=== PATIENT | male | born 2005 | race Two or more races ===

== ENCOUNTER 2024-09-07 21:06 | Emergency (ER) | payer MEDICAID, OTHER ==
[~2024-09-07] VITALS: Ht 162.6 cm; Wt 67.0 kg
[2024-09-07] MEDS: HYDROmorphone HCL 2 MG/ML VL/or syr IM ONE (21:32)
[2024-09-07] MEDS: LIDOCAINE 1% HCL (LOCAL ANESTH.) INJ 20ML MDV ID ONE (22:01)
[2024-09-08] MEDS ORDERED: BACIOIN15 OP (00:52)
[2024-09-08] MEDS ORDERED: HYDR-4902 PO (00:52)
[2024-09-08] MEDS ORDERED: CEPH500C PO (00:52)
[2024-09-08] MEDS ORDERED: IBUP-1455 PO (00:52)
[2024-09-08 00:58] VITALS: BP 124/82; PULSE 86; RESP 20; O2SAT 100
[2024-09-08] MEDS: BACITRACIN TOP OINT 1 UD PKG TOP ONE (02:06)
[2024-09-08] MEDS: HYDROcodone-ACET 10/325MG TAB PO ONE (02:13)
== END 2024-09-08 02:30 | disposition home or self-care (01) ==
LOC: ER 21:06
DX: S61.412A Laceration without foreign body of left hand, initial encounter (principal); S61.211A Laceration without foreign body of left index finger without damage to nail, initial encounter; S61.213A Laceration without foreign body of left middle finger without damage to nail, initial encounter; S67.22XA Crushing injury of left hand, initial encounter; S47.2XXA Crushing injury of left shoulder and upper arm, initial encounter; X58.XXXA Exposure to other specified factors, initial encounter; Y93.89 Activity, other specified; Y92.89 Other specified places as the place of occurrence of the external cause; Y99.8 Other external cause status
CPT/HCPCS: 12004; 73090; 73110; 73130; 96372; 99284; J1171; J2003